=== PATIENT | female | born 1995 | race Caucasian/White ===

== ENCOUNTER 2017-08-27 17:03 | Emergency (ER) | payer SELFPAY ==
[~2017-08-27] VITALS: Ht 162.6 cm; Wt 53.2 kg
[2017-08-27 17:06] VITALS: BP 113/63; TEMP 97.8
[2017-08-27] MEDS ORDERED: DEPO-PROVER150 MG/M1 IM (17:10)
[2017-08-27] MEDS ORDERED: NORCO 325 MG-51 TAB PO (17:10)
[2017-08-27 18:12] LABS: COLLECTION METHOD CLEAN CATCH
[2017-08-27 18:13] LABS: BASO % 0.5 % (0.0-2.0); EOS # 0.2 (0.0-0.7); EOS % 3.5 % (0-4.0); GRAN % 46.8 % (42.2-75.2); HEMATOCRIT 41.2 % (35.0-45.0); HEMOGLOBIN 13.8 g/dl (12.0-15.0); LYMPH # 2.3 (1.2-3.4); LYMPH % 36.2 % (20.0-51.0); MEAN CELL VOLUME 84 fl (80.0-95.0); MEAN CORPUSCULAR HEMOGLOBIN 28 pg (26.0-32.0); MEAN CORPUSCULAR HGB CONC 34 g/dl (33.0-37.0); MEAN PLATELET VOLUME 10.3 fl (7.4-10.4); MONO # 0.8 (0.1-0.6); MONO % 12.8 % (1.7-9.3); PLATELET COUNT 199 K/mm3 (130-400); RED BLOOD COUNT 4.92 M/mm3 (4.10-5.30); WHITE BLOOD COUNT 6.3 K/mm3 (4.8-10.8)
[2017-08-27 18:21] LABS: ALBUMIN 4.3 gm/dL (3.5-5.0); BILIRUBIN,TOTAL 0.4 mg/dL (0.0-1.0); C-REACTIVE PROTEIN 0.8 mg/dL (0.0-0.9); CALCIUM 9.2 mg/dL (8.4-10.2); CREATININE, serum 0.51 mg/dL (0.52-1.25); POTASSIUM 3.9 mmol/L (3.4-5.0); TOTAL PROTEIN 7.5 gm/dL (6.4-8.2)
[2017-08-27 18:25] LABS: MUCOUS Present /lpf; PH 5 (5-8); URINE APPEARANCE Hazy; URINE BACTERIA Rare /hpf; URINE BILIRUBIN Negative (NEGATIVE); URINE BLOOD Negative (NEGATIVE); URINE COLOR Yellow; URINE GLUCOSE Negative (NEGATIVE); URINE KETONE Negative (NEGATIVE); URINE LEUKOCYTE ESTERASE Negative (NEGATIVE); URINE PROTEIN(semi-quant) Negative (NEGATIVE); URINE RBC 0-2 /hpf; URINE WBC 0-2 /hpf
[2017-08-27 20:00] VITALS: PULSE 81
== END 2017-08-27 20:00 | disposition home or self-care (01) ==
LOC: COL.ER 17:03
PROVIDERS: Physician Assistant
DX: R10.12 Left upper quadrant pain (principal)
CPT/HCPCS: J1885